=== PATIENT | female | born 1985 | race Caucasian/White ===

== ENCOUNTER 2019-10-12 22:32 | Emergency (ER) | payer BC ==
[~2019-10-12] VITALS: Ht 157.5 cm; Wt 77.3 kg
[2019-10-12 22:44] VITALS: BP 103/61; Ht 157.5 cm; Wt 77.3 kg
== END 2019-10-12 23:35 | disposition home or self-care (01) ==
LOC: D.ER 22:32
DX: S40.021A Contusion of right upper arm, initial encounter (principal); X58.XXXA Exposure to other specified factors, initial encounter